=== PATIENT | male | born 1955 | race Caucasian/White ===

== ENCOUNTER 2023-08-12 08:44 | Emergency (ER) | payer OTHER ==
--- NOTE | 2023-08-12 09:05 | ED Physician Documentation ---
History of Present Illness - Stated complaint Stated Complaint: GLF/RIB PX - Chief complaint Chief Complaint: Trauma Ch/Bk - History obtained from History obtained from: Patient - History of Present Illness Timing: How many days ago (5) - Additonal information Additional information: 68-year-old male with history of obesity, COPD presents for possible rib fract ure. Patient got tangled in the escalators at [facility] and had a ground- level fall 5 days ago. He struck his left ribs against the ground. He has been taking a leftover pain med from a previous surgery, which has improved the pain. Patient states that yesterday he got in the car and "felt something shift". He is here for evaluation of his ribs and for x-rays. Review of Systems Constitutional: denies: Fever, Chills Cardiac: reports: Other (Left chest wall pain). denies: Chest pain / pressure, Palpitations, Calf pain Respiratory: denies: Dyspnea, Cough, Wheezing GI: denies: Abdominal Pain, Nausea, Vomiting Skin: reports: Abrasion (s), Other (bruising, L chest wall). denies: Rash, Lesions PD PAST MEDICAL HISTORY - Past Medical History Past Medical History: Yes Cardiovascular: Hypertension, High cholesterol, Valve disorder Respiratory: COPD, Sleep apnea, CPAP use Neuro: None Endocrine/Autoimmune: None GI: None : None HEENT: Other Psych: Depression Musculoskeletal: Chronic back pain Derm: None - Past Surgical History Past Surgical History: Yes General: Appendectomy - Present Medications Home Medications: Ambulatory Orders Medication Instructions Recorded Confirmed HYDROcod/ACETAM 5/325 [[place] 5/325] 1 tab PO Q6H PRN #8 tablet 08/12/23 Lidocaine Patch 5% [Lidoderm Patch] 1 each TOP DAILY #5 patch 08/12/23 methocarbamoL [Robaxin] 500 mg PO Q6H #20 tablet 08/12/23 - Allergies Allergies/Adverse Reactions: Allergies Allergy/AdvReac Type Severity Reaction Status Date / Time No Known Drug Allergies Allergy Verified 08/12/23 08:48 - Social History Does the pt smoke?: No Smoking Status: Current some day smoker Does the pt drink ETOH?: Yes ETOH Use: Liquor Does the pt have substance abuse?: Yes Substance Use and Type: Marijuana - Immunizations Immunizations are current?: Yes PD ED PE NORMAL - Vitals Vital signs reviewed: Yes - General General: Alert and oriented X 3, No acute distress, Well developed/nourished - HEENT HEENT: Atraumatic - Cardiac Cardiac: RRR, Strong equal pulses - Respiratory Respiratory: No respiratory distress, Other (L sided chest wall tenderness to palpation midaxillary line. 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 There is bruising to the left chest wall to mid axillary line, no crepitus, no deformity. Of note, patient's oxygen saturations 91%, however he denies any dyspnea, he has known history of COPD and still actively smoking. X-rays negative for acute process. Mild atelectasis on the left-hand side without evidence of pneumonia. Patient counseled of his results. He requested a note for airline travel, which was provided. He was counseled on the importance of taking deep breaths to avoid worsening atelectasis and subsequent pneumonia. Pain medication sent to pharmacy of choice. Departure - Departure Disposition: 01 Home, Self Care Clinical Impression: Contusion of chest wall Qualifiers: Encounter type: initial encounter Laterality: left Qualified Code(s): S20.212A - Contusion of left front wall of thorax, initial encounter Condition: Stable Instructions: ED Contusion Chest Wall, ED Contusion Rib Prescriptions: Lidocaine Patch 5% [Lidoderm Patch] 1 each TOP DAILY #5 patch HYDROcod/ACETAM 5/325 [[place] 5/325] 1 tab PO Q6H PRN #8 tablet PRN Reason: Pain methocarbamoL [Robaxin] 500 mg PO Q6H #20 tablet Forms: PCP List, Activity restrictions Discharge Date/Time: 08/12/23 10:38
--- NOTE | 2023-08-12 09:32 | XRAY Report ---
PROCEDURE: Ribs w/PA Chest LT INDICATIONS: GLF, RIB PAIN TECHNIQUE: 2 views of the left ribs were acquired, along with a single view chest. COMPARISON: None. FINDINGS: Surgical changes and devices: None. Bones and chest wall: No fractures or dislocations. No suspicious bony lesions. Overlying soft tis sues appear unremarkable. Lungs and pleura: Blunting of left costophrenic angle is seen suggestive of trace left pleural effus ion and left basilar atelectasis. No pneumothorax.. Mediastinum: Mediastinal contours appear normal. Heart size is normal. IMPRESSION: No displaced rib fracture. Trace left pleural effusion and left basilar dependent atelectasis. No ngoc ss pneumothorax. Right lung is clear. Reviewed by: Fernando Posey MD on 08/12/2023 9:31 AM PDT Approved by: Fernando Posey MD on 08/12/2023 9:31 AM PDT Station ID: [id number]
[2023-08-12] MEDS ORDERED: LIDOCAINE PATCH 5% TOP STA (09:47)
[2023-08-12 10:40] VITALS: BP 158/87; O2SAT 98
== END 2023-08-12 10:38 | disposition home or self-care (01) ==
LOC: ED 08:44
DX: S20.212A Contusion of left front wall of thorax, initial encounter (principal); W18.39XA Other fall on same level, initial encounter; Y93.89 Activity, other specified; Y92.520 Airport as the place of occurrence of the external cause; J98.11 Atelectasis; F17.200 Nicotine dependence, unspecified, uncomplicated
CPT/HCPCS: 71101; 99283; A9270